=== PATIENT | female | born 1975 | race Caucasian/White ===

== ENCOUNTER 2018-02-11 18:35 | Emergency (ER) | payer OTHER ==
[2018-02-11 18:55] VITALS: BP 109/63; PULSE 80; TEMP 98; BMI 29.7
--- NOTE | 2018-02-11 20:39 | PDOC ---
*Physical Exam - Vital Signs Last Vital Signs Temp Pulse Resp BP Pulse Ox 98.0 F 80 16 109/63 99 02/11/18 18:52 02/11/18 18:52 02/11/18 18:52 02/11/18 18:52 02/11/18 18:52 - Physical Exam Comments: 02/11/18 20:38 The patient was examined by [CRISTINA Patel] under my direct supervision. I personally evaluated the patient. I concur with the above findings and the plan of care. *DC/Admit/Observation/Transfer - Referrals Referrals: Taina Braun [Primary Care Provider] - - Patient Instructions - Post Discharge Activity
--- NOTE | 2018-02-11 20:57 | PDOC ---
History of Present Illness - General Chief Complaint: Head/Neck problem Stated Complaint: FACIAL NUMBNESS Time Seen by Provider: 02/11/18 20:08 History Source: Patient Exam Limitations: No Limitations Past History - Past Medical History Allergies/Adverse Reactions: Allergies Allergy/AdvReac Type Severity Reaction Status Date / Time codeine Allergy Intermediate Rash Verified 02/11/18 18:51 Home Medications: Ambulatory Orders NK [No Known Home Medication] 11/15/14 COPD: No Psychiatric Problems: Yes (DEPRESSION) - Surgical History Cholecystectomy: Yes GI Surgery: Yes (GASTRIC SLEEVE) - Immunization History Immunization Up to Date: Yes - Suicide/Smoking/Psychosocial Hx Smoking History: Never smoked Hx Alcohol Use: No Drug/Substance Use Hx: No Substance Use Type: None Hx Substance Use Treatment: No *Physical Exam - Vital Signs Last Vital Signs Temp Pulse Resp BP Pulse Ox 98.0 F 80 16 109/63 99 02/11/18 18:52 02/11/18 18:52 02/11/18 18:52 02/11/18 18:52 02/11/18 18:52 - Physical Exam General Appearance: No: Apparent Distress HEENT: positive: EOMI, ARLYN Neck: positive: Supple. negative: Decreased range of motion, Rigidity, Tender midline Respiratory/Chest: positive: Lungs Clear, Normal Breath Sounds. negative: Respiratory Distress Cardiovascular: positive: Regular Rhythm, Regular Rate, S1, S2. negative: Murmur Gastrointestinal/Abdominal: positive: Normal Bowel Sounds, Soft. negative: Tender, Distended, Guarding, Rebound Extremity: positive: Normal Inspection. 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 Patient has been following with Dr. Alejandro for her symptoms and has MRI brain planned on Thursday. However, was concerned with the numbness extending to L side of neck; she called the office and the certified legal secretary specialist advised her to come to the ED. Denies fever, sob, cp, abd pain, n/v, diplopia, blurred vision, photophobia, speech/ gait changes. PE unremarkable with no focal deficits noted; unlikely CVA given chronicity of symptoms Will discuss with Dr. Alejandro 02/11/18 20:[address] Alejandro Spoke to Dr. Amaro who advised that patient can follow-up with her outpatient MRI scheduled on Thursday Stable for discharge 02/11/18 21:38 *DC/Admit/Observation/Transfer Diagnosis at time of Disposition: Paresthesia - Discharge Dispostion Disposition: HOME Condition at time of disposition: Good Decision to Admit order: No - Referrals Referrals: Taina Braun [Primary Care Provider] - 3 days - Patient Instructions Printed Discharge Instructions: DI for Numbness/tingling Additional Instructions: Thank you for choosing [facility]. It was a pleasure taking care of you. Recommend you follow-up on 02/13/18 for your scheduled MRI Also continue follow-up with your neurologist. Return to the Emergency Department if your symptoms worsen or persist, you have fever, changes in vision, loss of vision, weakness of extremities (arms and/or legs), changes in speech pattern or walking, severe headache or other concerning symptoms. - Post Discharge Activity
== END 2018-02-11 23:45 | disposition home or self-care (01) ==
LOC: JER 18:35
DX: R20.2 Paresthesia of skin (principal); G51.0 Bell's palsy; C85.91 Non-Hodgkin lymphoma, unspecified, lymph nodes of head, face, and neck
CPT/HCPCS: 70450-TC; 84703; 99282-25